=== PATIENT | female | born 1995 | race Caucasian/White ===

== ENCOUNTER → 2020-07-11 15:13 | Outpatient (BNVA) | payer OTHER, SELFPAY | PROVIDERS: Family Provider Family Medicine; Visit Provider Nurse Practitioner Women's Health | DX: N92.6 Irregular menstruation, unspecified (principal); R68.82 Decreased libido | CPT/HCPCS: 83001; 84146; 84443; 84450; 85025 ==

== ENCOUNTER → 2020-08-28 08:15 | Outpatient (BNVA) | payer OTHER, SELFPAY | PROVIDERS: Family Provider Family Medicine; Visit Provider Obstetrics & Gynecology | DX: Z32.01 Encounter for pregnancy test, result positive (principal) | CPT/HCPCS: 81025 ==

== ENCOUNTER 2021-04-25 23:07 | Inpatient (IN) | payer OTHER, SELFPAY ==
[2021-04-25 22:47] VITALS: BP 122/78; PULSE 86
[2021-04-25 22:48] VITALS: TEMP 36.3
[2021-04-25 23:08] VITALS: TEMP 36.3
[2021-04-25 23:10] VITALS: BMI 30.9
[2021-04-25 23:24] VITALS: RESP 15
[2021-04-25] MEDS: dextrose 5%-lactated ringers 1,000 ML 125 ML IV (23:24)
[2021-04-25] MEDS: fentaNYL 50 mcg/mL INJ 2mL IVP (23:24)
[2021-04-25 23:49] VITALS: BP 124/85; PULSE 70
[2021-04-26] VITALS (61 sets, daily range): BP systolic 80–144; BP diastolic 51–84; PULSE 56–210; RESP 17; TEMP 36.3–36.8; O2SAT 92–99
[2021-04-26 00:04] LABS: Basophils % 0.2 %; Eosinophils # 0.1 10^3/uL (0.0-0.8); Eosinophils % 0.3 %; Hematocrit 39.3 % (37.0-47.0); Hemoglobin 13.3 g/dL (11.5-15.3); Lymphocytes # 2.1 10^3/uL (0.8-4.8); Lymphocytes % 13.5 %; Mean Corpuscular HGB Conc 33.8 g/dL (30.0-36.0); Mean Corpuscular Hemoglobin 30.2 pg (28.0-34.0); Mean Corpuscular Volume 89.1 fl (81-99); Mean Platelet Volume 10.8 fL (7.4-10.4); Monocytes # 1.6 10^3/uL (0.2-0.9); Monocytes % 10.1 %; Neutrophils # 11.97 10^3/uL (1.8-7.7); Neutrophils % 75.3 %; Nucleated Red Blood Cells % 0 %; Platelet Count 192 10^3/cmm (130-400); Red Blood Count 4.41 10^6/uL (4.1-5.3); Red Cell Distribution Width 13.7 % (12.1-15.1); White Blood Count 15.9 10^3/uL (4.0-10.0)
[2021-04-26] MEDS: lactated ringers 1,000 ML 999 ML IV (00:30)
--- NOTE | 2021-04-26 01:38 | P.ANESASSM_ITS ---
Pre-Anesthetic Assessment Pre-Anesthetic Assessment: Height/Weight: Height 1.57 m Weight 76.657 kg Temp Pulse Resp BP 97.3 F L 62 15 130/80 04/26/21 01:35 04/26/21 00:09 04/25/21 23:24 04/26/21 00:09 Preop Diagnosis: labor pains Proposed Procedure: epidural Familial anesthetic complications: none Social: Social History: No alcohol and No tobacco Exam: Pre-Anes Outpt Exam: alert, oriented x 3, clear to auscultation bilaterally and regular rate & rhythm Airway: Submandibular: WNL Cervical ROM: WNL MP: 2 Dentition: Full Pulmonary: Pulmonary: None reported CV/HEM: CV/HEM: None reported : : None reported Hepatic: Hepatic: None reported GI: GI: GERD Metabolic: Metabolic: None reported Musc/skel: Musc/skel: None reported Neuropsych: Neuropsych: None reported Anesthetic Plan: ASA status: 2 Anesthesia: Regional (specify below) Risk of > 500 ml blood loss (7ml/kg in children): No Meds/Allergies Current Medications: Current Medications Generic Name Dose Route Start Last Admin Trade Name Freq PRN Reason Stop Dose Admin Fentanyl 25 - 100 mcg 04/25/21 23:08 04/25/21 23:24 Fentanyl 50 Mcg/ Ml Inj 2ml IVP 25 mcg Q1H PRN Administration SEVERE PAIN Dextrose/Lactated Ringer's 1,000 mls @ 125 m ls/hr 04/25/21 23:08 04/25/21 23:24 Dextrose 5%-Lact ated Ringers IV 125 mls/hr .Q8H PRN Administration labor Lactated Ringer's 1,000 mls @ 999 m ls/hr 04/25/21 23:09 04/26/21 00:30 Lactated Ringers IV 999 mls/hr .Q1H1M PRN Administration See label comment s PFSH Anesthesia PFSH: Medical History (Updated 07/11/20 @ 15:35 by Susannah Chery APN, TRINA) No pertinent past medical history neghx: htn,dm,thyroid,dvt/pe Surgical History (Updated 07/11/20 @ 15:32 by Susannah Chery APN, TRINA) Hx of wisdom tooth extraction (~2015) Family History Grandfather Stroke Maternal Denies family history of Colon cancer Ovarian cancer Diabetes Heart disease Hypercholesteremia Breast cancer Bleeding disorder Hypertension Uterine cancer Social History Additional social history: - Tobacco use: Never Alcohol use: Socially/occasionally Drug use: Never Female Reproductive History: : 1 Data Anesthesia CBC & Chem 7: 04/25/21 23:05 Other Labs: Laboratory Results - last 48 hr 04/25/21 23:05 WBC 15.9 H RBC 4.41 Hgb 13.3 Hct 39.3 MCV 89.1 MCH 30.2 MCHC 33.8 RDW 13.7 Plt Count 192 MPV 10.8 H Neut % (Auto) 75.3 Lymph % (Auto) 13.5 [place] % (Auto) 10.1 Eos % (Auto) 0.3 Baso % (Auto) 0.2 Neut # (Auto) 11.97 H Lymph # (Auto) 2.1 [place] # (Auto) 1.6 H Eos # (Auto) 0.1 Baso # (Auto) 0.0 Nucleated RBC % (auto) 0 Nucleated RBCs # 0.0 Cardiac Studies: No Data to Display
--- NOTE | 2021-04-26 02:06 | ANES.PROC ---
Anesthesia Procedures Procedure/Date: 04/26/21 epidural Procedure Narrative: epidural complete, bolus given, epidural pump initiated with CASH MANAGEMENT ASSOCIATE education given, vitals taken during procedure using OBIX system and satisfactory throughout, patient admits to decrease pain, report of procedure to OB RN Epidural: Time Out Performed: Yes Consents Signed: Procedure Consent Consent: requested by attending/covering physician, from patient, risks and benefits reviewed and patient agrees to proceed Lumbar Level: L3-L4 Epidural position: sitting Epidural procedure: sterile prep of area, 1% lidocaine to numb the area (3 mL), 18 g needle, negative for paresthesia passed, neg for paresthesia, test dose given, 1.5% xylocaine 1:200k epi (5 mL), 0.2% Ropivacaine bolus ml (5 mL), placed PCEA, no systemic response, sterile dressing applied, L.U.D. no apparent complications and 0.2% Ropiavacaine @ mls/hr (13 mL/hr)
[2021-04-26] MEDS: ondansetron 2 mg/ML SDV 2 mL 4 MG IVP (04:09)
--- NOTE | 2021-04-26 04:39 | PM.OPHPUD ---
Labor & Delivery H&P Update Date of Procedure: April 26, 2021 Date H&P Performed: 04/25/21 H&P update information: I have reviewed H&P completed within last 30 days, I have examined patient prior to procedure and Changes to prior documentation as noted here (Patient was 6 cm dilated on admission and is in active labor.) Admission Diagnosis: Preop diagnosis: labor pains Primary indication for procedure: Term in spontaneous labor. Planned procedure: Plan spontaneous vaginal delivery. Epidural anesthesia.
[2021-04-26] MEDS: oxytocin 30 UNIT/500 ML BAG 600 UNIT IV (06:23)
--- NOTE | 2021-04-26 06:53 | PM.DELIVERY ---
Delivery Note: Date of delivery: April 26, 2021 This 25-year-old 1 now para 1 female with an EDC of 04/27/2021 began morelia the day prior to delivery. She was seen in the office and found to be about 4 cm dilated but decided she wanted to go home and come back when they got stronger. She arrived to [facility] labor and delivery late in the evening and was approximately 6 cm dilated and morelia every 2 to 3 minutes. She did receive epidural anesthesia and slowly dilated to complete cervical dilatation. The was low-lying the entire time. After dilatation to complete cervical dilatation she pushed for about 40 minutes and delivered by spontaneous vaginal livery a healthy, viable male infant at 06 14. Upon delivery of the head the mouth and nose were suctioned and then the entire baby was delivered without problems. After delivery, the was suctioned again and then laid on mother's abdomen. After approximately 1 minute, the umbilical cord was clamped and then cut by the infant's father. The was a little junky and required suctioning of approximately 14 mL of clear fluid. There was no nuchal cord and the cord had 3 blood vessels. There was a second-degree episiotomy with no extension. Layered surgical closure was accomplished with Vicryl suture. Epidural anesthesia was used for this. After suturing, the vaginal vault was explored and swept of blood clots. There were no complications. At present time mother and are doing well. Estimated blood loss approximately 252 mL. Pre-Delivery Course: This patient was followed by this physician throughout her entire . Maternal blood type was A+ with antibody screen negative. Hepatitis B, hepatitis C, RPR and HIV were negative. Rubella was immune and group B strep was negative. Covid is pending as was tested yesterday. She has spontaneous onset of labor at home yesterday at 39 weeks and 5 days gestation. Delivery: Spontaneous vaginal delivery. Post-Delivery Status: Patient is doing well and will be followed for routine care. A&P Assessment and plan (1) Normal spontaneous vaginal delivery: Patient did well with labor and delivery process. There were no complications. We will plan routine care and probable discharge tomorrow. Status: Acute Coding Level of Care Code Acute Community Program Assistant for [employer] Workman Diagnoses Normal spontaneous vaginal delivery O80
[2021-04-26] MEDS: prenatal vitamin Capsule 1 CAP PO (09:13)
[2021-04-26] MEDS: docusate sodium 100 mg Capsule PO ×2 (09:13→18:25)
[2021-04-26] MEDS: benzocaine-menthol 78 gm Canister 1 SPRAY TOPICAL (09:14)
[2021-04-26] MEDS: lanolin oint 7 gm 1 APPLIC TOPICAL (09:14)
[2021-04-26] MEDS: ibuprofen 800 mg tablet PO ×3 (09:14→20:30)
--- NOTE | 2021-04-26 11:16 | PC.NURSE ---
Pt up to bathroom without difficulty. Void 400mL. Educated on shasha care, suture care. Shasha care performed by pt, pad/underwear changed, gown changed. Bed linens changed and mattress pad placed. Pt ambulated back to bed. Snack, juice and ice water given. Discussed proud parent pack, I &O sheet, and how to order meals with cafeteria.
--- NOTE | 2021-04-26 11:29 | ANE.PACU2 ---
Inpatient post-anesthesia follow up: Airway intact: Yes Vital signs: Temperature 98.0 F Pulse Rate 71 Respiratory Rate 17 Blood Pressure 109/52 Pulse Oximetry 98 Oxygen Delivery Me thod Room Air Oxygen Flow Rate Fraction of Inspir ed Oxygen Hydration adequate: Yes Nausea and vomiting: No Pain level: 1 Mental status: Baseline
[2021-04-26] MEDS: HYDROcodone-acetaminophen 5-325 mg Tablet PO (16:42)
[2021-04-26 19:12] LABS: Hematocrit 35.8 % (37.0-47.0); Hemoglobin 11.6 g/dL (11.5-15.3); Mean Corpuscular HGB Conc 32.4 g/dL (30.0-36.0); Mean Corpuscular Hemoglobin 30.6 pg (28.0-34.0); Mean Corpuscular Volume 94.5 fl (81-99); Mean Platelet Volume 10.8 fL (7.4-10.4); Platelet Count 177 10^3/cmm (130-400); Red Blood Count 3.79 10^6/uL (4.1-5.3); White Blood Count 20.4 10^3/uL (4.0-10.0)
[2021-04-27] VITALS (9 sets, daily range): BP systolic 105–146; BP diastolic 59–82; PULSE 80–114; RESP 17–18; TEMP 35.8–36.1
--- NOTE | 2021-04-27 09:12 | P.DS_ITS ---
Discharge Providers CUSTOMER EXPERIENCE ASSOCIATE Date of Admission: 04/25/21 23:07 Date of Discharge: 04/27/21 Attending Provider at Admission: Real Blanco MD Attending Provider at Discharge: Real Blanco MD Primary Care Provider: Real Blanco MD Diagnoses at Discharge Discharge Diagnosis (1) Normal spontaneous vaginal delivery: Status: Acute Reason for Visit Reason for Visit: Contractions Hospital Course Hospital Course Patient delivered by normal vaginal delivery early yesterday morning after onset of labor at home. She has done well since delivery with just mild lochia and no significant clots or cramping. is breast-feeding well and the patient has no concerns at this time. Information Peripartum Data: Infant Delivery Method: Vaginal Physical Exam Const: COMMON NORMALS: no acute distress, average body habitus, healthy appearing and well nourished HENMT: COMMON NORMALS: moist oral mucous membranes Resp: COMMON NORMALS: normal respiratory effort, No retractions, No use of accessory muscles and clear to auscultation bilaterally AUSCULTATION: clear to auscultation bilaterally Cardio: COMMON NORMALS: regular rate and regular rhythm RATE: regular rate RHYTHM: regular rhythm GI: COMMON NORMALS: Normal to inspection, nondistended, normoactive bowel sounds present and Soft to palpation (Fundus is firm and well below the umbilicus.) PALPATION: Yes Soft to palpation (Fundus is firm and well below the umbilicus.) Extremity: COMMON NORMALS: normal to inspection, full ROM, no calf tenderness and no pedal edema Neuro: COMMON NORMALS: moves all extremities, no focal motor deficits and no sensory deficits noted Psych: COMMON NORMALS: mental status grossly normal and cooperative Skin: COMMON NORMALS: no rashes or lesions noted GENERAL SKIN EXAM: no rashes or lesions noted Urinary Catheter Management^: Phillips: Cath Placed During This Visit: yes Reason for Continuing Indwelling Catheter: Other Urinary Catheter Date of Insertion: 04/26/21 Urinary Catheter Time of Insertion: 02:50 Discharge Data Data Completed and Pending: Labs from last 24 hours 04/26/21 18:30 WBC 20.4 H RBC 3.79 L Hgb 11.6 Hct 35.8 L MCV 94.5 D MCH 30.6 MCHC 32.4 RDW 14.0 Plt Count 177 MPV 10.8 H Vitals: Last Vital Signs Temp 97.0 F L 04/27/21 04:09 Pulse 80 04/27/21 04:10 Resp 17 04/26/21 11:13 BP 115/59 04/27/21 04:10 Pulse Ox 98 04/26/21 02:32 Discharge Plan Discharge Patient Disposition: Home Condition: Stable Prescriptions: New -U 106.5-1 mg Capsule 1 cap PO DAILY Qty: 90 RF: 1 docusate sodium 100 mg Capsule 100 mg PO BID Qty: 60 RF: 2 ibuprofen 800 mg Tablet 800 mg PO TID Qty: 90 RF: 1 Continued melatonin 3 mg capsule 3 mg PO DAILY RF: 0 Discontinued flibanserin 100 mg tablet 100 mg PO .hs PRN (Reason: low libido) Qty: 15 RF: 0 Referrals: Real Blanco MD [Primary Care Provider] - 6 Weeks Discharge Diet: Usual diet Discharge Activity: Resume usual activity Patient Instructions: Opioid Safety Discharge Attestations CUSTOMER EXPERIENCE ASSOCIATE Time Spent in Discharge Care*: less than 30 min Specific Discharge Activities: Specific discharge activities: educating patient, documenting/other paperwork and evaluating patient/reviewing data Coding Level of Care Code Acute Roofing Plant Supervisor for Chg Fwd Diagnoses Normal spontaneous vaginal delivery O80
[2021-04-27] MEDS: prenatal vitamin Capsule 1 CAP PO (10:43)
[2021-04-27] MEDS: HYDROcodone-acetaminophen 5-325 mg Tablet PO ×2 (10:43→14:34)
[2021-04-27] MEDS: ibuprofen 800 mg tablet PO ×2 (10:43→14:33)
[2021-04-27] MEDS: docusate sodium 100 mg Capsule PO ×2 (10:43→14:34)
[2021-04-27] MEDS: lanolin oint 7 gm 1 APPLIC TOPICAL (14:33)
== END 2021-04-27 15:00 | disposition home or self-care (01) | DRG 807 ==
LOC: OPOB 23:10 → OBGYN 23:10
PROVIDERS: Admitting Provider Family Medicine; PCP Family Medicine; Visit Provider Family Medicine
DX: O70.1 Second degree perineal laceration during delivery (principal); Z37.0 Single live birth; Z3A.39 39 weeks gestation of pregnancy
CPT/HCPCS: 36415; 51702; 59025; 59409; 85025; 85027; 96374; 96375; 99211; J2405; J2795; J3010

== ENCOUNTER 2021-05-27 10:50 | Outpatient (CLI) | payer OTHER, SELFPAY ==
--- NOTE | 2021-05-27 12:17 | PC.NURSE ---
consult This mom called requesting a consult. She is not directly her baby. She pumps and feeds with a bottle. Her concern is nipple pain with pumping and low milk supply. She does feed supplemental formula. Currently she pumps about 6 or 7 times per day for 30 min. she has tried different flange sizes but no relief of pain. She returns about 0.5 to 3 oz. each time total from both breasts. She also has an area of her left breast that is not draining well. Her baby is currently finishing a course of treatment for thrush but still has it. Her breasts are average size with average to small nipples and areolas. They appear full but not engorged, the left nipple is pink/sore or tender. She reports the right to be painful with pumping but it is normal color. Discussed pumping frequency. Encouraged her to increase the frequency to 10 or even 12 times per day for 15 to 20 min on each breast for about a week and see if she can increase the volume. Also noted the marcela from her pump on the left areola is off center. Discussed how this can be causing significant pain. Reviewed pumping suction and not using too much, using the let down phase of her pump more than once if necessary Showed her how to hand express also. Discussed using warm moist heat to massage the breast prior to pumping. Discussed and gave resource information for Hands on Pumping technique as well. Discussed massaging the hard area of her breast before and during pumping to help that area drain better. She has been treated with antibiotics recently for a mastitis. Discussed cleaning all her pump and bottle supplies including pacifiers and toys. She is planning to contact Dr. Blanco for baby's thrush. She may need treatment herself as well due to the color of her nipples and possible some of the nipple pain could be yeast infection. Dr Blanco notifiied of the above consult.
[2021-05-27 12:39] VITALS: PULSE 80; RESP 16; TEMP 36.9
== END 2021-05-27 11:40 | disposition home or self-care (01) ==
LOC: OPOB 11:51
PROVIDERS: PCP Family Medicine; Visit Provider Family Medicine
DX: Z39.1 Encounter for care and examination of lactating mother (principal)
CPT/HCPCS: 98960

== ENCOUNTER 2022-04-04 12:04 | Outpatient (CLI) | payer OTHER, SELFPAY ==
[2022-04-04] VITALS (7 sets, daily range): BP systolic 94–118; BP diastolic 59–67; PULSE 72–88; RESP 17; TEMP 36.6; BMI 27.8
[2022-04-04] MEDS: ondansetron 2 mg/ML SDV 2 mL 4 MG IVP (12:54)
[2022-04-04] MEDS: lactated ringers 1,000 ML 999 ML IV (12:54)
== END 2022-04-04 12:48 | disposition home or self-care (01) ==
LOC: OPOB 12:04 → OBGYN 12:05
PROVIDERS: PCP Family Medicine; Visit Provider Family Medicine
DX: O21.9 Vomiting of pregnancy, unspecified (principal); Z3A.00 Weeks of gestation of pregnancy not specified
CPT/HCPCS: J2405

== ENCOUNTER 2022-07-16 19:11 | Outpatient (CLI) | payer OTHER, SELFPAY ==
[2022-07-16 19:15] VITALS: RESP 16; BMI 33.0
[2022-07-16 19:20] VITALS: BP 129/78; PULSE 82
[2022-07-16 19:24] VITALS: TEMP 36.1
[2022-07-16 19:41] VITALS: BP 117/69; PULSE 75
[2022-07-16 20:08] VITALS: BP 117/69; PULSE 75; RESP 16; TEMP 36.1
[2022-07-16 20:52] LABS: Nitrazine Paper, PH Negative
== END 2022-07-16 20:03 | disposition home or self-care (01) ==
LOC: OPOB 19:12 → OBGYN 19:12
PROVIDERS: PCP Family Medicine; Visit Provider Family Medicine
DX: O26.899 Other specified pregnancy related conditions, unspecified trimester (principal); Z3A.00 Weeks of gestation of pregnancy not specified; N89.8 Other specified noninflammatory disorders of vagina
CPT/HCPCS: 59025; 83986; 99211

== ENCOUNTER 2022-07-26 04:50 | Inpatient (IN) | payer OTHER, SELFPAY ==
[2022-07-26] VITALS (56 sets, daily range): BP systolic 90–143; BP diastolic 49–88; PULSE 55–129; RESP 15–16; TEMP 36.1–36.9; O2SAT 98–99
[2022-07-26] MEDS: lactated ringers 1,000 ML 999 ML IV ×2 (04:31→05:30)
[2022-07-26 04:43] LABS: Basophils % 0.1 %; Eosinophils # 0.1 10^3/uL (0.0-0.8); Eosinophils % 0.4 %; Hematocrit 37.2 % (37.0-47.0); Hemoglobin 12.1 g/dL (11.5-15.3); Lymphocytes # 2.1 10^3/uL (0.8-4.8); Lymphocytes % 15.6 %; Mean Corpuscular HGB Conc 32.5 g/dL (30.0-36.0); Mean Corpuscular Hemoglobin 27.8 pg (28.0-34.0); Mean Corpuscular Volume 85.5 fl (81-99); Mean Platelet Volume 10.6 fL (7.4-10.4); Monocytes # 0.9 10^3/uL (0.2-0.9); Monocytes % 6.5 %; Neutrophils # 10.51 10^3/uL (1.8-7.7); Neutrophils % 76.9 %; Nucleated Red Blood Cells % 0 %; Platelet Count 230 10^3/cmm (130-400); Red Blood Count 4.35 10^6/uL (4.1-5.3); Red Cell Distribution Width 16.1 % (12.1-15.1); White Blood Count 13.7 10^3/uL (4.0-10.0)
[2022-07-26] MEDS: vancomycin 1,500 MG/300 ML PIGGYBACK 200 MG IV (04:59)
--- NOTE | 2022-07-26 05:28 | ANES.PREANE2 ---
Pre-Anesthetic Assessment Height/Weight: Height 1.57 m Weight 82.1 kg Temp Pulse Resp BP O2 Del Method 97.0 F L 94 15 128/85 07/26/22 03:54 07/26/22 03:54 07/26/22 04:16 07/26/22 03:54 07/26/22 05:05 Preop Diagnosis: labor pains Was Beta Ilia taken within 24 hours: N/A Was Clonidine taken within 24 hours: N/A Social No alcohol and No tobacco Exam alert, oriented x 3, clear to auscultation bilaterally and regular rate & rhythm Airway Submandibular: within normal limits Cervical ROM: within normal limits Mallampati: Class III Dentition: full History/ROS No significant history except as noted and No significant complaints Pulmonary None reported CV/HEM None reported None reported Hepatic None reported GI Gastroesophageal Reflux Disease Metabolic None reported Musc/skel None reported Neuropsych None reported Anesthetic Plan ASA status: 2 Anesthesia: Anesthesia Evaluation and Eval. for regional block Risk of > 500 ml blood loss (7ml/kg in children): No Medications/Allergies Home Medications Medication Instructions Recorded Confirmed Last Taken Type vitamin with calcium 1 tab PO DAILY 07/16/22 07/26/22 07/25/22 History no.72-iron 27 mg-folic acid 1 mg tablet (M- Plus) Allergies Allergy/AdvReac Type Severity Reaction Status Date / Time Penicillins Allergy Unknown unknown-- Verified 07/26/22 04:57 mom told her not to take Current Medications Generic Name Dose Route Start Last Admin Trade Name Freq PRN Reason Stop Dose Admin Lactated Ringer's 1,000 mls @ 999 mls/hr 07/26/22 04:14 07/26/22 04:31 Lactated Ringers IV 999 mls/hr .Q1H1M PRN Administration See label comments Vancomycin/PEG/[place]/Lysine/Water 1,500 mg in 300 mls @ 200 mls/hr 07/26/22 04:45 07/26/22 04:59 Vancocin IV 200 mls/hr Q8H CHAO Administration PFSH Anesthesia Medical History (Updated 04/28/21 @ 00:01 by ) No pertinent past medical history neghx: htn,dm,thyroid,dvt/pe Surgical History (Updated 07/11/20 @ 15:32 by Susannah Chery APN, TRINA) Hx of wisdom tooth extraction (~2016) Family History Grandfather Stroke Maternal Denies family history of Colon cancer Ovarian cancer Diabetes Heart disease Hypercholesteremia Breast cancer Bleeding disorder Hypertension Uterine cancer Social History Additional social history: - Tobacco use: Never Alcohol use: Socially/occasionally Drug use: Never Female Reproductive History : 2 Data Anesthesia 07/26/22 04:25 Short CBC 07/26/22 Range/Units 04:25 WBC 13.7 H (4.0-10.0) 10^3/uL Hgb 12.1 (11.5-15.3) g/dL Hct 37.2 (37.0-47.0) % MCV 85.5 (81-99) fl Plt Count 230 (130-400) 10^3/cmm Neut % (Auto) 76.9 % Neut # (Auto) 10.51 H (1.8-7.7) 10^3/uL Cardiac Studies: No Data to Display
--- NOTE | 2022-07-26 06:01 | ANES.PROC ---
Anesthesia Procedures Procedure/Date: 07/26/22 Epidural: Time Out Performed: Yes Consents Signed: Procedure Consent and NPO Consent Consent: requested by attending/covering physician, from patient, risks and benefits reviewed and patient agrees to proceed Lumbar Level: L3-L4 Epidural position: sitting Epidural procedure: sterile prep of area, 1% lidocaine to numb the area, neg for paresthesia, test dose given, 1.5% xylocaine 1:200k epi (3 mL/ 2 mL), 0.2% Ropivacaine bolus ml (5 mL), placed PCEA, no systemic response, sterile dressing applied and 0.2% Ropiavacaine @ mls/hr (11 ) Additional Comments: PATRICK 6 cm, placed catheter at 11 cm
[2022-07-26] MEDS: dextrose 5%-lactated ringers 1,000 ML 125 ML IV (08:27)
[2022-07-26] MEDS: oxytocin 30 UNIT/500 ML BAG IV (10:30)
[2022-07-26] MEDS: ondansetron 2 mg/ML SDV 2 mL 4 MG IVP (13:11)
--- NOTE | 2022-07-26 13:54 | P.HP_ITS ---
Providers/Chief Complaint Admitting Physician: Irving Lam MD Primary Care Provider: Real Blanco MD Chief Complaint: Contractions HPI PLANT ATTENDANT History of Present Illness Lizzy Roberts is a 27 year old female that presents at 40 weeks and 3 days due to her contractions. Initial presentation she was 5 cm dilated and 85% effaced. Patient had started having contractions early in the morning and they became more painful and more frequent therefore she presented for evaluation. Her was uncomplicated. labs were unremarkable except for GBS which was positive. Sensitivities was performed and vancomycin was antibiotic of choice. Present Details : 2 Para: 1 Labs Rubella: Immune RPR: Negative GBS: Positive Review of Systems General: Reports: 10 or more systems reviewed and unremarkable except in HPI and below Medications/Allergies Home Medications Medication Instructions Recorded Confirmed Last Taken Type vitamin with calcium 1 tab PO DAILY 07/16/22 07/26/22 07/25/22 History no.72-iron 27 mg-folic acid 1 mg tablet (M- Plus) Allergies Allergy/AdvReac Type Severity Reaction Status Date / Time Penicillins Allergy Unknown unknown-- Verified 07/26/22 04:57 mom told her not to take PFSH PLANT ATTENDANT PFSH: Medical History (Updated 07/26/22 @ 13:58 by Irving Lam MD) No pertinent past medical history neghx: htn,dm,thyroid,dvt/pe Surgical History (Updated 07/11/20 @ 15:32 by Susannah Chery APN, TRINA) Hx of wisdom tooth extraction (~2015) Family History Grandfather Stroke Maternal Denies family history of Colon cancer Ovarian cancer Diabetes Heart disease Hypercholesteremia Breast cancer Bleeding disorder Hypertension Uterine cancer Social History Additional social history: - Tobacco use: Never Alcohol use: Socially/occasionally Drug use: Never Other Female Reproductive History: Date of Last Menstrual Period: 06/21/20 History History History 0 Term Miscarriages/Ectopic Living Children Vitals/I&O/Wt Last Vital Signs Temp 98.4 F 07/26/22 10:11 Pulse 86 07/26/22 13:43 Resp 15 07/26/22 04:16 BP 115/78 07/26/22 13:43 Pulse Ox 98 07/26/22 05:49 O2 Del Method 07/26/22 05:05 07/25/22 07/26/22 07/26/22 22:59 06:59 14:59 Intake Total 2182.450 / 2182.450 3.00 / 3.00 Balance 2182.450 / 2182.450 3.00 / 3.00 Weight last 48 hrs Weight 82.1 kg Weight 181 g Physical Exam Const: COMMON NORMALS: no acute distress HENMT: COMMON NORMALS: normocephalic Chest: COMMONS NORMALS: normal inspection of the chest Resp: COMMON NORMALS: normal respiratory effort Cardio: COMMON NORMALS: no JVD, regular rate and regular rhythm Extremity: GENERAL: No edema Neuro: COMMON NORMALS: patient oriented x3 and moves all extremities Psych: COMMON NORMALS: mental status grossly normal and normal affect Skin: GENERAL SKIN EXAM: no rashes or lesions noted Urinary Catheter Management: Phillips Latex: Cath Placed During This Visit: yes Reason for Continuing Indwelling Catheter: Other Urinary Catheter Date of Insertion: 07/26/22 Urinary Catheter Time of Insertion: 04:05 Data 07/26/22 04:25 A&P Assessment and plan (1) Term : Proceed with normal labor management. (2) GBS (group B Streptococcus carrier), +RV culture, currently : Patient is penicillin allergic and vancomycin recommended per cultures. Attestations Medical Necessity Statement*: Anticipate greater than 2 midnight stay due to GBS status. Coding Level of Care Code Acute Hydrostatic Tubing Tester for Chg Fwd Diagnoses Term Z34.90 GBS (group B Streptococcus carrier), +RV culture, currently O99.820
--- NOTE | 2022-07-26 14:01 | PM.DELIVERY ---
Delivery Note: Date of delivery: July 26, 2022 Pre-delivery diagnoses: Term intrauterine Post-delivery diagnoses: Same, viable infant male Procedure: Spontaneous vaginal delivery Delivering Physician: Dr. Kong Lam Estimated blood loss (mL): 300 Pre-Delivery Course: Patient presented in active labor\ and progressed to 8 cm. The patient did not progress for several hours so augmentation was started with Pitocin. Patient then progressed to complete. She received 1 dose of vancomycin prior to rupture during the last check. Delivery: Patient was placed in normal lithotomy position and started to push with contractions. Patient delivered a viable infant male after 4 contractions. After delivery, the placenta delivered without difficulty. Evaluation of the perineum showed a small second-degree perineal laceration and a first-degree left labial laceration. Perineal laceration was repaired with 2-0 Vicryl. The labial laceration was pillow repaired with 2-0 chromic. At the end of the procedure the laceration showed no further complications and mom was stable. Post-Delivery Status: Stable History History History 0 Term Miscarriages/Ectopic Living Children A&P Assessment and plan (1) Term delivered: Routine care Coding Level of Care Code Acute Pc Network Technician for Chg Fwd Diagnoses Term delivered O80
[2022-07-26] MEDS: benzocaine-menthol 78 gm Canister 1 SPRAY TOPICAL (15:47)
[2022-07-26] MEDS: ibuprofen 800 mg tablet PO ×2 (15:48→20:53)
[2022-07-26] MEDS: docusate sodium 100 mg Capsule PO (17:37)
[2022-07-27 01:53] VITALS: BP 116/70; PULSE 68; RESP 15; O2SAT 98
[2022-07-27 03:18] LABS: Hematocrit 32.7 % (37.0-47.0); Hemoglobin 10.6 g/dL (11.5-15.3); Mean Corpuscular HGB Conc 32.4 g/dL (30.0-36.0); Mean Corpuscular Hemoglobin 28.1 pg (28.0-34.0); Mean Corpuscular Volume 86.7 fl (81-99); Mean Platelet Volume 11.1 fL (7.4-10.4); Platelet Count 181 10^3/cmm (130-400); Red Blood Count 3.77 10^6/uL (4.1-5.3); Red Cell Distribution Width 16.3 % (12.1-15.1); White Blood Count 13.5 10^3/uL (4.0-10.0)
[2022-07-27 04:31] VITALS: BP 122/81; PULSE 67; RESP 16
[2022-07-27] MEDS: docusate sodium 100 mg Capsule PO ×2 (07:33→17:24)
[2022-07-27] MEDS: ibuprofen 800 mg tablet PO ×3 (07:33→21:26)
[2022-07-27] MEDS: prenatal vitamin Capsule 1 CAP PO (07:33)
[2022-07-27 10:00] VITALS: BP 118/77; PULSE 67; RESP 18; TEMP 36.6; O2SAT 98
--- NOTE | 2022-07-27 10:48 | P.PN_ITS ---
HOME DEMONSTRATION AGENT Subjective Subjective: Interval history: The patient had no acute events overnight. No new concerns this morning. She has ambulated and voided since delivery. Patient reports bleeding has been appropriate. Labor: Station: +1 Amniotic Membrane Status: Ruptured Monitor Mode: External Contraction Pattern: Regular Status: Category I Vitals/I&O/Wt Last Vital Signs Temp 97.9 F 07/27/22 10:00 Pulse 67 07/27/22 10:00 Resp 18 07/27/22 10:00 BP 118/77 07/27/22 10:00 Pulse Ox 98 07/27/22 10:00 O2 Del Method 07/27/22 10:00 07/26/22 07/27/22 07/27/22 22:59 06:59 14:59 Output Total 750 / 750 Balance -750 / -150.00 Weight last 48 hrs Weight 82.1 kg Weight 181 g Physical Exam Const: COMMON NORMALS: no acute distress Neck/C-Spine: COMMON NORMALS: no JVD Chest: COMMONS NORMALS: normal inspection of the chest Resp: COMMON NORMALS: normal respiratory effort and No retractions Cardio: COMMON NORMALS: no JVD, regular rate and regular rhythm RATE: regular rate RHYTHM: regular rhythm GI: COMMON NORMALS: Soft to palpation PALPATION: Yes Soft to palpation Extremity: COMMON NORMALS: normal to inspection and no pedal edema Neuro: COMMON NORMALS: moves all extremities, no focal motor deficits and no sensory deficits noted Psych: COMMON NORMALS: mental status grossly normal and normal affect Urinary Catheter Management: Phillips Latex: Cath Placed During This Visit: yes, but has since been removed by the nurse Reason for Continuing Indwelling Catheter: Other Urinary Catheter Date of Insertion: 07/26/22 Urinary Catheter Time of Insertion: 04:05 Date Urinary Catheter Removed: 07/26/22 Time Urinary Catheter Discontinued: 13:19 Data 07/27/22 01:45 A&P Assessment and plan (1) Term delivered: continue routine care. Attestations Medical Necessity Statement*: anticipate discharge tomorrow. Coding Level of Care Code Acute Rn Compliance for [facility] Fwd Exam Comprehensive Diagnoses Term delivered O80
--- NOTE | 2022-07-27 14:55 | ANE.PACU2 ---
Inpatient post-anesthesia follow up: Airway intact: Yes Vital signs: Temperature 97.9 F Pulse Rate 67 Respiratory Rate 18 Blood Pressure 118/77 Pulse Oximetry 98 Oxygen Delivery Me thod Room Air Oxygen Flow Rate Fraction of Inspir ed Oxygen Hydration adequate: Yes Nausea and vomiting: No Pain level: 2 Mental status: Baseline
[2022-07-27 17:52] VITALS: BP 116/73; PULSE 72; RESP 16; TEMP 36.7
[2022-07-27 19:30] VITALS: BP 128/75; PULSE 73; TEMP 36.8; O2SAT 98
[2022-07-28 03:34] VITALS: BP 121/83; PULSE 80; O2SAT 99
--- NOTE | 2022-07-28 07:27 | PM.OBGYDC ---
Discharge Providers SILK CREPE MACHINE OPERATOR Date of Admission: 07/26/22 04:50 Date of Discharge: 07/28/22 Attending Provider at Admission: Irving Lam MD Attending Provider at Discharge: Irving Lam MD Primary Care Provider: Real Blanco MD Diagnoses at Discharge Discharge Diagnosis (1) Term delivered: Status: Acute Reason for Visit Reason for Visit: Contractions Brief History: This is a 27-year-old that presented at 40 weeks 3 days in active labor. Hospital Course Hospital Course Routine labor management was initiated and the patient progressed to 8 cm dilation. At this point her labor had to be augmented with Pitocin and the patient then progressed to complete. Patient then gave to a viable male via spontaneous vaginal delivery. There are no complications during delivery. The patient had an unremarkable recovery. Pain is well controlled with oral medications. The patient is ambulating and urinating without difficulty. Lochia is appropriate. Information Peripartum Data: Delivery Method: Vaginal Laceration description: Perineal - 2nd Degree (left) Episiotomy description: None complications: none Physical Exam Const: COMMON NORMALS: no acute distress Neck/C-Spine: COMMON NORMALS: no JVD Chest: COMMONS NORMALS: normal inspection of the chest Resp: COMMON NORMALS: normal respiratory effort and No retractions Cardio: COMMON NORMALS: no JVD and regular rate RATE: regular rate GI: COMMON NORMALS: Normal to inspection, nondistended, normoactive bowel sounds present Neuro: COMMON NORMALS: moves all extremities Psych: COMMON NORMALS: mental status grossly normal and normal affect Urinary Catheter Management: Phillips Latex: Cath Placed During This Visit: yes, but has since been removed by the nurse Reason for Continuing Indwelling Catheter: Other Urinary Catheter Date of Insertion: 07/26/22 Urinary Catheter Time of Insertion: 04:05 Date Urinary Catheter Removed: 07/26/22 Time Urinary Catheter Discontinued: 13:19 History History History 0 Term Miscarriages/Ectopic Living Children Discharge Data Studies Completed and Pending Laboratory Results WBC 13.5 10^3/uL (4.0-10.0) H 07/27/22 01:45 RBC 3.77 10^6/uL (4.1-5.3) L 07/27/22 01:45 Hgb 10.6 g/dL (11.5-15.3) L 07/27/22 01:45 Hct 32.7 % (37.0-47.0) L 07/27/22 01:45 MCV 86.7 fl (81-99) 07/27/22 01:45 MCH 28.1 pg (28.0-34.0) 07/27/22 01:45 MCHC 32.4 g/dL (30.0-36.0) 07/27/22 01:45 RDW 16.3 % (12.1-15.1) H 07/27/22 01:45 Plt Count 181 10^3/cmm (130-400) 07/27/22 01:45 MPV 11.1 fL (7.4-10.4) H 07/27/22 01:45 Neut % (Auto) 76.9 % 07/26/22 04:25 Lymph % (Auto) 15.6 % 07/26/22 04:25 Saunders % (Auto) 6.5 % 07/26/22 04:25 Eos % (Auto) 0.4 % 07/26/22 04:25 Baso % (Auto) 0.1 % 07/26/22 04:25 Neut # (Auto) 10.51 10^3/uL (1.8-7.7) H 07/26/22 04:25 Lymph # (Auto) 2.1 10^3/uL (0.8-4.8) 07/26/22 04:25 Saunders # (Auto) 0.9 10^3/uL (0.2-0.9) 07/26/22 04:25 Eos # (Auto) 0.1 10^3/uL (0.0-0.8) 07/26/22 04:25 Baso # (Auto) 0.0 10^3/uL (0.0-0.1) 07/26/22 04:25 Nucleated RBC % (auto) 0 % 07/26/22 04:25 Nucleated RBCs # 0.0 /100WBC 07/26/22 04:25 Vitals Last Vital Signs Temp 98.3 F 07/27/22 19:30 Pulse 80 07/28/22 03:34 Resp 16 07/27/22 17:52 BP 121/83 07/28/22 03:34 Pulse Ox 99 07/28/22 03:34 O2 Del Method 07/28/22 03:34 Discharge Plan Discharge Patient Disposition: Home Condition: Stable Prescriptions: Continued M-Hany Plus 27 mg iron- 1 mg tablet 1 tab PO DAILY Discharge Orders: Discharge Order (Routine); Ordered 07/28/22 Ordered By: Ivring Lam Discharge Diet: Usual diet Discharge Activity: Limit activity as instructed Patient Instructions: Opioid Safety Discharge Attestations SILK CREPE MACHINE OPERATOR Time Spent in Discharge Care*: less than 30 min Coding Level of Care Code Acute Automated Equipment Engineer Technician for Chg Fwd Diagnoses Term delivered O80
[2022-07-28 09:38] VITALS: BP 119/75; PULSE 71; RESP 17; TEMP 37.2; O2SAT 99
[2022-07-28] MEDS: ibuprofen 800 mg tablet PO (09:38)
[2022-07-28] MEDS: docusate sodium 100 mg Capsule PO (09:39)
[2022-07-28] MEDS: prenatal vitamin Capsule 1 CAP PO (09:39)
[2022-07-28 12:15] VITALS: BP 119/75; PULSE 71; RESP 17; TEMP 37.2; O2SAT 99
== END 2022-07-28 12:15 | disposition home or self-care (01) | DRG 807 ==
LOC: OPOB 04:53 → OBGYN 04:53
PROVIDERS: Admitting Provider Family Medicine; PCP Family Medicine; Visit Provider Family Medicine
DX: O48.0 Post-term pregnancy (principal); Z37.0 Single live birth; O99.824 Streptococcus B carrier state complicating childbirth; O70.1 Second degree perineal laceration during delivery; O70.0 First degree perineal laceration during delivery; Z3A.40 40 weeks gestation of pregnancy
CPT/HCPCS: 36415; 51702; 59025; 59409; 85025; 85027; 96374; 98960; 99211; J2405; J2590; J2795; J3370; J7120; J7121

== ENCOUNTER 2023-11-29 00:01 | Emergency (ER) | payer OTHER, SELFPAY ==
[2023-11-29 00:04] VITALS: BP 143/95; PULSE 113; RESP 20; TEMP 36.8; O2SAT 98; BMI 25.9
[2023-11-29 00:16] VITALS: BP 108/65; PULSE 94; RESP 18; O2SAT 96
--- NOTE | 2023-11-29 00:38 | USR_ITS ---
PROCEDURE INFORMATION: Exam: US , Limited Exam date and time: 11/29/2023 1:01 AM Age: 28 years old Clinical indication: Lmp or gestational age (in weeks): 11w3d; Antepartum complications; Bleeding; ; Additional info: 11w , vaginal bleeding LABS AND CLINICAL REPORTS: Gestational age (Established): 11 w 3 d Estimated due date (Established): 06/16/2024 TECHNIQUE: Imaging protocol: Real-time ultrasound of the maternal uterus with image documentation. Exam focused on the clinical indication. COMPARISON: US OB >= 14 weeks fetus [id number] 03/10/2022 10:47 AM FINDINGS: Gestation: Single live intrauterine gestation. heart rate: 174 bpm. Placenta: Subchorionic bleed noted, measuring 3.4 x 3.0 x 1.5 cm. BIOMETRY: Gestational age (AUA): 11 weeks 2 days Estimated due date (AUA): 06/17/2024 [place] length (CRL): 4.54 cm MATERNAL: Cervix: Cervical length measures 3 cm. US/US OB limited [id number] IMPRESSION: 1. Single live intrauterine gestation with estimated age of 11 weeks 2 days. 2. Subchorionic bleed.
--- NOTE | 2023-11-29 00:43 | ED_ITS ---
HPI - Female Genitourinary 2 General: Chief complaint: Urogenital-Female Stated complaint: heavy spotting 11weeks prego Time Seen by Provider: 11/29/23 00:19 History of Present Illness: 28-year-old G3, P2 female who is 11 week s . She had a previous ultrasound showing an IUP. She presents with brisk vaginal bleeding that started prior to arrival. She states her and her did have intercourse this evening. No other injury or insult. No other vaginal discharge. No fever. Some mild cramping. She has not bled with prior pregnancies. Associated symptoms: Deny nausea Review of Systems 2 Const: Denies: fever(s) or body aches GI: Denies: nausea, vomiting or diarrhea : Denies: difficulty voiding Skin/Breast: Denies: rash PFSH ED 2 PFSH: Medical History No pertinent past medical history neghx: htn,dm,thyroid,dvt/pe Surgical History Hx of wisdom tooth extraction (~2015) Family History Grandfather Stroke Maternal Denies family history of Colon cancer Ovarian cancer Diabetes Heart disease Hypercholesteremia Breast cancer Bleeding disorder Hypertension Uterine cancer Social History Additional social history: - Tobacco use: Never Alcohol use: Socially/occasionally Drug use: Never Physical Exam 2 Const: COMMON NORMALS: no acute distress GENERAL APPEARANCE: cooperative; not ill appearing and not frail appearing HENMT: COMMON NORMALS: normocephalic, atraumatic and Normal external nose present HEAD & SCALP: normocephalic and atraumatic FACE & SINUS: normal facial exam and face symmetric NOSE: Normal external nose present Eye: COMMON NORMALS: Equal, round and reactive pupils present and EOMs intact bilaterally PUPIL: Yes Equal, round and reactive pupils present Neck/C-Spine: GENERAL: Yes trachea midline Chest: CHEST: Yes Symmetrical chest wall rise Resp: COMMON NORMALS: normal respiratory effort, No retractions, No use of accessory muscles and clear to auscultation bilaterally AUSCULTATION: clear to auscultation bilaterally Cardio: COMMON NORMALS: regular rate and regular rhythm RATE: regular rate RHYTHM: regular rhythm GI: COMMON NORMALS: Normal to inspection, nondistended, normoactive bowel sounds present and Soft to palpation PALPATION: Yes Soft to palpation O THER: Mild suprapubic tenderness Extremity: COMMON NORMALS: no pedal edema Neuro: GALA COMA SCALE: document GCS findings Gala coma scale eye opening: Spontaneous Gala coma scale verbal response: Orientated [place] coma scale motor response: Obey commands [place] coma scale total score: 15 S ENSORY EXAM: Yes extremities (intact) Psych: COMMON NORMALS: speech normal SPEECH: Yes normal speech Skin: COMMON NORMALS: no rashes or lesions noted GENERAL SKIN EXAM: no rashes or lesions noted Course 2 Vital Signs: Vital signs: Vital Signs Temperature 98.2 F 11/29/23 00:04 Pulse Rate 94 11/29/23 00:16 Respiratory Rate 18 11/29/23 00:16 Blood Pressure 108/65 11/29/23 00:16 Pulse Oximetry 96 11/29/23 00:16 Oxygen Delivery Me thod Room Air 11/29/23 00:16 MDM - Female Medical Decision Making Hemoglobin is 12. White blood cell count 13.2. Laboratory otherwise not remarkable. Ultrasound shows a subchorionic bleed, and a single intrauterine , active, with a heart rate in 170s, at appropriate age of 11 weeks 2 days. Warning signs for return given. Precautions given. They understand. Close outpatient follow-up. Lab Data 11/29/23 00:52 11/29/23 00:52 Radiology Impressions Obstetrics Ultrasound 11/29/23 00:38 IMPRESSION: 1. Single live intrauterine gestation with estimated age of 11 weeks 2 days. 2. Subchorionic bleed. Laboratory Results WBC 13.21 10^3/uL (3.29-11.43) H 11/29/23 00:52 RBC 4.23 10^6/uL (3.85-5.65) 11/29/23 00:52 Hgb 12.40 g/dL (11.27-16.99) 11/29/23 00:52 Hct 38.3 % (36-47) 11/29/23 00:52 MCV 90.5 fl (85-98) 11/29/23 00:52 MCH 29.3 pg (27-33) 11/29/23 00:52 MCHC 32.4 g/dL (30-55) 11/29/23 00:52 RDW 13.0 % (12.1-15.1) 11/29/23 00:52 Plt Count 248 10^3/cmm (157-399) 11/29/23 00:52 MPV 9.8 fL (7.4-10.4) 11/29/23 00:52 Neut % (Auto) 72.1 % 11/29/23 00:52 Lymph % (Auto) 18.6 % 11/29/23 00:52 [place] % (Auto) 7.1 % 11/29/23 00:52 Eos % (Auto) 1.7 % 11/29/23 00:52 Baso % (Auto) 0.2 % 11/29/23 00:52 Neut # (Auto) 9.52 10^3/uL (1.8-7.7) H 11/29/23 00:52 Lymph # (Auto) 2.5 10^3/uL (0.8-4.8) 11/29/23 00:52 [place] # (Auto) 0.9 10^3/uL (0.2-0.9) 11/29/23 00:52 Eos # (Auto) 0.2 10^3/uL (0.0-0.8) 11/29/23 00:52 Baso # (Auto) 0.0 10^3/uL (0.0-0.1) 11/29/23 00:52 Nucleated RBC % (auto) 0 % 11/29/23 00:52 Nucleated RBCs # 0.0 /100WBC 11/29/23 00:52 Sodium 136 mmol/L (136-145) 11/29/23 00:52 Potassium 3.7 mmol/L (3.5-5.1) 11/29/23 00:52 Chloride 106 mmol/L (98-107) 11/29/23 00:52 Carbon Dioxide 21 mmol/L (22-29) L 11/29/23 00:52 Anion Gap 12.7 (5-19) 11/29/23 00:52 BUN 11 mg/dL (6-20) 11/29/23 00:52 Creatinine 0.4 mg/dL (0.5-0.9) L 11/29/23 00:52 GFR Calculation 192.9 mL/min (90-130) H 11/29/23 00:52 Glucose 89 mg/dL (65-115) 11/29/23 00:52 Calculated Osmolality 281 mOsm/kg (285-295) L 11/29/23 00:52 Calcium 9.0 mg/dL (8.5-10.5) 11/29/23 00:52 Total Bilirubin 0.2 mg/dL (0.15-1.2) 11/29/23 00:52 AST 13 U/L (0-32) 11/29/23 00:52 ALT 10 U/L (0-33) 11/29/23 00:52 Alkaline Phosphatase 50 U/L (35-105) 11/29/23 00:52 Total Protein 6.5 g/dL (6.6-8.7) L 11/29/23 00:52 Albumin 3.8 g/dL (3.5-5.2) 11/29/23 00:52 Globulin 2.7 g/dL (1.3-4.6) 11/29/23 00:52 Lipase 23 U/L (13-60) 11/29/23 00:52 Urine Color Yellow (Yellow) 11/29/23 01:18 Urine Appearance Cloudy (CLEAR) A 11/29/23 01:18 Urine pH 7 (5-7) 11/29/23 01:18 Ur Specific [place] 1.015 (1.005-1.030) 11/29/23 01:18 Urine Protein Trace (Negative) 11/29/23 01:18 Urine Glucose (UA) Norm (Normal) 11/29/23 01:18 Urine Ketones Negative (Negative) 11/29/23 01:18 Urine Blood 3+ (Negative) H 11/29/23 01:18 Urine Nitrate Negative (Negative) 11/29/23 01:18 Urine Bilirubin Neg (Negative) 11/29/23 01:18 Urine Urobilinogen Neg mg/dL (Negative) 11/29/23 01:18 Ur Leukocyte Esterase Negative (Negative) 11/29/23 01:18 Urine RBC 25-40 /hpf (0-2) H 11/29/23 01:18 Urine WBC 0-4 /hpf (0-5) H 11/29/23 01:18 Ur Squamous Epith Cells 0-4 /hpf (0-5) H 11/29/23 01:18 Amorphous Sediment Not Reportable 11/29/23 01:18 Urine Bacteria 1+ /hpf (NONE) H 11/29/23 01:18 Urine Mucus 1+ /hpf 11/29/23 01:18 Blood Type A Positive 11/29/23 00:55 Rho(D) Type Rh positive 11/29/23 00:55 All radiology interpretation(s) finalized by discharge Discharge Plan Discharge Patient Disposition: Home Clinical Impression: Subchorionic hematoma, , spontaneous threatened Condition: Stable Prescriptions: No Action M-Hany Plus 27 mg iron- 1 mg tablet 1 tab PO DAILY Discharge Orders: Discharge ED (Routine); Ordered 11/29/23 Ordered By: Aris Pulliam Referrals: Real Blanco MD [Primary Care Provider] - Lars Tenorio MD [Physician] - 1-3 days Patient Instructions: Threatened Miscarriage (ED), Subchorionic Hemorrhage (ED), Opioid Safety, Pain Management Activity Restrictions/Additional Instructions: Return for brisk vaginal bleeding, soaking a pad an hour or more for more than 3 hours. Return for increasing pain, fever greater than 100, vomiting liquids, any other concerning symptoms. You should have your blood count checked in 48 hours if you continue to bleed. Call your doctor later this morning and let them know you were seen here. They will want to follow up with you. Until your follow-up, no lifting greater than 10 pounds, no sexual intercourse, limit stairs and squatting or bending. Coding Level of Care Code ED Plc Technician for Lenin Workman
[2023-11-29 01:02] LABS: Basophils % 0.2 %; Eosinophils # 0.2 10^3/uL (0.0-0.8); Eosinophils % 1.7 %; Hematocrit 38.3 % (36-47); Lymphocytes # 2.5 10^3/uL (0.8-4.8); Lymphocytes % 18.6 %; Mean Corpuscular HGB Conc 32.4 g/dL (30-55); Mean Corpuscular Hemoglobin 29.3 pg (27-33); Mean Corpuscular Volume 90.5 fl (85-98); Mean Platelet Volume 9.8 fL (7.4-10.4); Monocytes # 0.9 10^3/uL (0.2-0.9); Monocytes % 7.1 %; Neutrophils # 9.52 10^3/uL (1.8-7.7); Neutrophils % 72.1 %; Nucleated Red Blood Cells % 0 %; Platelet Count 248 10^3/cmm (157-399); Red Blood Count 4.23 10^6/uL (3.85-5.65); White Blood Count 13.21 10^3/uL (3.29-11.43)
[2023-11-29 01:29] LABS: Alanine Aminotransferase 10 U/L (0-33); Albumin Level 3.8 g/dL (3.5-5.2); Alkaline Phosphatase 50 U/L (35-105); Anion Gap 12.7 (5-19); Aspartate Amino Transferase 13 U/L (0-32); Blood Urea Nitrogen 11 mg/dL (6-20); Carbon Dioxide 21 mmol/L (22-29); Chloride 106 mmol/L (98-107); Creatinine Clr Calc Pharmacy 187.8245; Globulin 2.7 g/dL (1.3-4.6); Glomerular Filtration Rate 192.9 mL/min (90-130); Glucose 89 mg/dL (65-115); Lipase 23 U/L (13-60); Osmolality Calculated 281 mOsm/kg (285-295); Potassium 3.7 mmol/L (3.5-5.1); Sodium 136 mmol/L (136-145); Total Bilirubin 0.2 mg/dL (0.15-1.2); Total Protein 6.5 g/dL (6.6-8.7)
[2023-11-29 02:04] LABS: Add Urine Culture? Yes; Add Urine Microscopic? YES; Bacteria Urine 1+ /hpf; Bilirubin Urine Neg (Negative); Blood Urine 3+ (Negative); Glucose Urine UA Norm (Normal); Ketones Urine Negative (Negative); Leukocyte Esterase Urine Negative (Negative); Mucus Urine 1+ /hpf; Nitrate Urine Negative (Negative); Protein Urine Trace (Negative); RBC Urine 25-40 /hpf (0-2); Specific Gravity, Urine 1.015 (1.005-1.030); Squamous Epithelial Cell Urine 0-4 /hpf (0-5); Urine Appearance Cloudy (CLEAR); Urine Color Yellow (Yellow); Urobilinogen Urine Neg (Negative); WBC Urine 0-4 /hpf (0-5); pH Urine 7 (5-7)
[2023-11-29 02:31] VITALS: BP 114/64; PULSE 78; RESP 18; O2SAT 97
== END 2023-11-29 02:35 | disposition home or self-care (01) ==
PROVIDERS: Emergency Provider Emergency Medicine; PCP Family Medicine
DX: O20.8 Other hemorrhage in early pregnancy (principal); Z3A.11 11 weeks gestation of pregnancy; O20.0 Threatened abortion
CPT/HCPCS: 36415; 76815; 80053; 81001; 83690; 84702; 85025; 86900; 87086; 99284

== ENCOUNTER 2024-06-09 01:45 | Inpatient (IN) | payer OTHER, SELFPAY ==
[2024-06-08 23:45] VITALS: BMI 34.9
[2024-06-08 23:51] VITALS: BP 128/76; PULSE 78
[2024-06-09] VITALS (50 sets, daily range): BP systolic 78–150; BP diastolic 49–84; PULSE 62–184; RESP 15–40; TEMP 35.9–37.2; O2SAT 90–99
[2024-06-09 01:15] LABS: Actim Prom Positive
[2024-06-09 02:45] LABS: Basophils % 0.1 %; Eosinophils # 0.1 10^3/uL (0.0-0.8); Hematocrit 37.8 % (36-47); Lymphocytes # 2.5 10^3/uL (0.8-4.8); Mean Corpuscular HGB Conc 32.5 g/dL (30-55); Mean Corpuscular Volume 89.2 fl (85-98); Mean Platelet Volume 10.5 fL (7.4-10.4); Monocytes # 1.2 10^3/uL (0.2-0.9); Monocytes % 8.5 %; Neutrophils # 9.85 10^3/uL (1.8-7.7); Neutrophils % 71.9 %; Nucleated Red Blood Cells % 0 %; Platelet Count 195 10^3/cmm (157-399); Red Blood Count 4.24 10^6/uL (3.85-5.65); Red Cell Distribution Width 15.2 % (12.1-15.1); White Blood Count 13.72 10^3/uL (3.29-11.43)
[2024-06-09] MEDS: ceFAZolin 2,000 mg SDV 2000 MG IVP (02:59)
[2024-06-09] MEDS: lactated ringers 1,000 ML 999 ML IV ×2 (03:08→04:10)
[2024-06-09] MEDS: ROPivacaine syringe 100 MG/50 ML SYRINGE 10 MG EPIDURAL (04:18)
--- NOTE | 2024-06-09 04:21 | P.ANESASSM_ITS ---
Pre-Anesthetic Assessment Height/Weight: Height 1.57 m Weight 86.636 kg Pulse BP Pulse Ox O2 Del Method 109 H 134/79 90 Room Air 06/09/24 04:18 06/09/24 04:18 06/09/24 04:16 06/09/24 01:24 Labor Epidural Familial anesthetic complications: None Social No alcohol and No tobacco Exam alert, oriented x 3 and clear to auscultation bilaterally Airway Submandibular: within normal limits Cervical ROM: within normal limits Mallampati: Class II Dentition: full History/ROS No significant history except as noted Pulmonary None reported CV/HEM None reported None reported Hepatic None reported GI None reported Metabolic None reported Musc/skel None reported Neuropsych None reported Anesthetic Plan ASA status: 2 Anesthesia: Regional (specify below) Other: Labor Epidural Medications/Allergies Home Medications Medication Instructions Recorded Confirmed Last Taken Type vitamin with calcium 1 tab PO DAILY 07/16/22 06/09/24 1 Day Ago History no.72-iron 27 mg-folic acid 1 mg ~06/08/24 tablet (M- Plus) Allergies Allergy/AdvReac Type Severity Reaction Status Date / Time Penicillins Allergy Unknown unknown-- Verified 06/09/24 01:00 mom told her not to take Current Medications Generic Name Dose Route Start Last Admin Trade Name Freq PRN Reason Stop Dose Admin Lactated Ringer's 1,000 mls @ 999 mls/hr 06/09/24 02:32 06/09/24 03:08 Lactated Ringers IV 999 mls/hr .Q1H1M PRN Administration See label comments PFSH Anesthesia Medical History No pertinent past medical history neghx: htn,dm,thyroid,dvt/pe Surgical History Hx of wisdom tooth extraction (~2015) Family History Grandfather Stroke Maternal Denies family history of Colon cancer Ovarian cancer Diabetes Heart disease Hypercholesteremia Breast cancer Bleeding disorder Hypertension Uterine cancer Social History Additional social history: - Tobacco use: Never Alcohol use: Socially/occasionally Drug use: Never Female Reproductive History : 3 Data Anesthesia 06/09/24 02:20 Short CBC 06/09/24 Range/Units 02:20 WBC 13.72 H (3.29-11.43) 10^3/uL Hgb 12.30 (11.27-16.99) g/dL Hct 37.8 (36-47) % MCV 89.2 (85-98) fl Plt Count 195 (157-399) 10^3/cmm Neut % (Auto) 71.9 % Neut # (Auto) 9.85 H (1.8-7.7) 10^3/uL Cardiac Studies: 2 No Data to Display Anesthesia Procedures Epidural Time Out Performed: Yes Consent: from patient, risks and benefits reviewed and patient agrees to proceed Lumbar Level: L3-L4 Epidural position: sitting Epidural procedure: sterile prep of area, 1% lidocaine to numb the area, negative for paresthesia passed, test dose given, 1.5% xylocaine 1:200k epi (5ml), placed PCEA, no systemic response, sterile dressing applied, L.U.D. no apparent complications and 0.2% Ropiavacaine @ mls/hr (10) Additional Comments: PATRICK at 6cm on first attempt - heme, -csf. epidural threaded to 13cm. 100 mcg Fentanyl given via epidural. patient reports relief.
--- NOTE | 2024-06-09 07:16 | PM.OPHPUD ---
Labor & Delivery H&P Update Date of Procedure: June 09, 2024 Date H&P Performed: 06/08/24 Changes to previous documentation: Rupture membranes with consistent contractions Admission Diagnosis: 29-year-old 3 para 2-0-0-2 at 40 weeks estimated gestational age presenting in active labor with rupture membranes Other information: The patient is a pleasant 26-year-old female who presents to the hospital complaining of contractions. After arriving she had rupture membranes. Her is unremarkable. Her labs were also unremarkable. Her blood type is a positive. Her antibody screen is negative. She passed her glucose screen she is GBS positive. The remainder of her infectious disease profile is within normal limits. Related Problem List Diagnoses (1) 40 weeks gestation of : A&P Assessment and plan (1) 40 weeks gestation of : I anticipate routine labor. She will be placed on GBS protocol. Status: Acute
--- NOTE | 2024-06-09 07:19 | PM.DELIVERY ---
Delivery Note: Date of delivery: June 09, 2024 Pre-delivery diagnoses: 29-year-old 3 para 2-0-0-2 at 40 weeks estimated gestational age Post-delivery diagnoses: Status post spontaneous vaginal delivery Procedure: Spontaneous vaginal delivery Delivering Physician: Lars Tenorio Estimated blood loss (mL): 50 Pre-Delivery Course: The patient presented to the hospital complaining of contractions. While in the hospital she had spontaneous rupture membranes. She was placed on GBS protocol. An epidural was placed. She progressed to complete without difficulty. Delivery: DELIVERY: The patient progressed to complete without difficulty. She delivered a male with a weight of 8 pounds 0 ounces with Apgars of 8, 9. The baby was delivered from the ALEXANDER position. The baby's mouth and nose were suctioned shortly after delivery. The baby was then completely delivered and placed on the mother's abdomen. The cord was then clamped and cut. There was a body cord x 1 which was easily reduced during delivery. There was no meconium. The placenta and 3 vessel cord were delivered intact shortly thereafter. The perineum and vaginal vault were carefully examined. No lacerations were noted. Both the mother and the baby were in stable condition. Post-Delivery Status: Good History History History 0 Term Miscarriages/Ectopic Living Children A&P Assessment and plan (1) 40 weeks gestation of : I anticipate routine care (2) Spontaneous vaginal delivery: Coding Level of Care Code Acute Code for Chg Fwd Diagnoses 40 weeks gestation of Z3A.40 Spontaneous vaginal delivery O80
[2024-06-09] MEDS: lanolin oint 7 gm 1 APPLIC TOPICAL (08:50)
[2024-06-09] MEDS: oxytocin 30 UNIT/500 ML BAG 600 UNIT IV (08:56)
[2024-06-09] MEDS: PRENATAL VIT NO.130/IRON/FOLIC 1 EACH TABLET PO (08:56)
--- NOTE | 2024-06-09 18:08 | ANE.PACU2 ---
Inpatient post-anesthesia follow up: Airway intact: Yes Vital signs: Temperature 97.8 F Pulse Rate 72 Respiratory Rate 15 Blood Pressure 145/78 Pulse Oximetry 98 Oxygen Delivery Me thod Room Air Oxygen Flow Rate Fraction of Inspir ed Oxygen Hydration adequate: Yes Nausea and vomiting: No Pain level: 1 Mental status: Baseline Epidural Start/End: Epidural Start Date: 06/09/24 Epidural Start Time: 03:57 Epidural End Date: 06/09/24 Epidural End Time: 08:40
[2024-06-09 19:32] LABS: Hematocrit 32.2 % (36-47); Mean Corpuscular HGB Conc 32.9 g/dL (30-55); Mean Corpuscular Hemoglobin 29.4 pg (27-33); Mean Corpuscular Volume 89.4 fl (85-98); Mean Platelet Volume 10.7 fL (7.4-10.4); Platelet Count 151 10^3/cmm (157-399); Red Cell Distribution Width 15.3 % (12.1-15.1); White Blood Count 13.19 10^3/uL (3.29-11.43)
[2024-06-10 04:00] VITALS: BP 110/70; PULSE 86; RESP 18; TEMP 36.6
[2024-06-10 10:00] VITALS: BP 117/77; PULSE 77; RESP 16; TEMP 36.6; TEMP 36.7
--- NOTE | 2024-06-10 10:16 | P.DS_ITS ---
Discharge Providers HUMAN RESOURCES CONSULTANT Date of Admission: 06/09/24 01:45 Date of Discharge: 06/10/24 Attending Provider at Admission: Lars Tenorio MD Attending Provider at Discharge: Lars Tenorio MD Primary Care Provider: Real Blanco MD Diagnoses at Discharge Discharge Diagnosis (1) 40 weeks gestation of : Status: Acute (2) Spontaneous vaginal delivery: Status: Acute Reason for Visit Reason for Visit: possible ROM Hospital Course Hospital Course The patient presented to the hospital in active labor. An epidural was placed. An amniotomy was performed. She had an unremarkable spontaneous vaginal del alessandra. Her course has been unremarkable. Her bleeding has been within normal limits. She is breast-feeding well. Her pain is been well- controlled. Information Peripartum Data: Delivery Method: Vaginal Physical Exam Narrative: The patient is alert. She appears comfortable. Her heart has a regular rate and rhythm with no murmurs appreciated. Lungs are clear to auscultation bilaterally. Her fundus is firm and below the umbilicus. Urinary Catheter Management: Phillips Latex: Cath Placed During This Visit: yes Reason for Continuing Indwelling Catheter: Required Immobilization for Trauma or Surgery or Anesthesia Urinary Catheter Date of Insertion: 06/09/24 Urinary Catheter Time of Insertion: 05:05 History History History 0 Term Miscarriages/Ectopic Living Children Discharge Data Studies Completed and Pending Laboratory Results WBC 13.19 10^3/uL (3.29-11.43) H 06/09/24 19:23 RBC 3.60 10^6/uL (3.85-5.65) L 06/09/24 19:23 Hgb 10.60 g/dL (11.27-16.99) L 06/09/24 19:23 Hct 32.2 % (36-47) L 06/09/24 19:23 MCV 89.4 fl (85-98) 06/09/24 19:23 MCH 29.4 pg (27-33) 06/09/24 19: MCHC 32.9 g/dL (30-55) 06/09/24 19:23 RDW 15.3 % (12.1-15.1) H 06/09/24 19:23 Plt Count 151 10^3/cmm (157-399) L 06/09/24 19:23 MPV 10.7 fL (7.4-10.4) H 06/09/24 19:23 Neut % (Auto) 71.9 % 06/09/24 02:20 Lymph % (Auto) 18.0 % 06/09/24 02:20 Story % (Auto) 8.5 % 06/09/24 02:20 Eos % (Auto) 1.0 % 06/09/24 02:20 Baso % (Auto) 0.1 % 06/09/24 02:20 Neut # (Auto) 9.85 10^3/uL (1.8-7.7) H 06/09/24 02:20 Lymph # (Auto) 2.5 10^3/uL (0.8-4.8) 06/09/24 02:20 Story # (Auto) 1.2 10^3/uL (0.2-0.9) H 06/09/24 02:20 Eos # (Auto) 0.1 10^3/uL (0.0-0.8) 06/09/24 02:20 Baso # (Auto) 0.0 10^3/uL (0.0-0.1) 06/09/24 02:20 Nucleated RBC % (auto) 0 % 06/09/24 02:20 Nucleated RBCs # 0.0 /100WBC 06/09/24 02:20 Insulin-like GF I Positive 06/09/24 00:40 Blood Type A Positive 06/09/24 02:20 Rho(D) Type Rh positive 06/09/24 02:20 Antibody Screen Negative 06/09/24 02:20 Vitals Last Vital Signs Temp 97.9 F 06/10/24 04:00 Pulse 86 06/10/24 04:00 Resp 18 06/10/24 04:00 BP 110/70 06/10/24 04:00 Pulse Ox 98 06/09/24 15:05 O2 Del Method Room Air 06/09/24 15:05 Results Labs OB ([facility]): Obstetrics US 11/29/23 Blood Type A Positive 06/09/24 Antibody Screen Negative 06/09/24 Hct 32.2 % (36-47) L 06/09/24 Hgb 10.60 g/dL (11.27-16.99) L 06/09/24 Rho(D) Type Rh positive 06/09/24 Plt Count 151 10^3/cmm (157-399) L 06/09/24 Ser , Semi-Qnt 64764.00 mIU/mL 11/29/23 Micro Urine Specimen 11/29/23 Discharge Plan Discharge Patient Disposition: Home Condition: Stable Prescriptions: Continued M-Hany Plus 27 mg iron- 1 mg tablet 1 tab PO DAILY Discharge Orders: Discharge Order (Routine); Ordered 06/10/24 Ordered By: Lars Tenorio Referrals: Lars Tenorio MD [Physician] - 6 Weeks (Please cancel appointment for next week as well.) Discharge Diet: Usual diet Discharge Activity: Limit activity as instructed Patient Instructions: Opioid Safety Discharge Attestations HUMAN RESOURCES CONSULTANT Time Spent in Discharge Care*: less than 30 min Coding Level of Care Code Acute Code for Chg Fwd Diagnoses 40 weeks gestation of Z3A.40 Spontaneous vaginal delivery O80
[2024-06-10 12:00] VITALS: BP 120/73; PULSE 95; RESP 16; TEMP 36.6
== END 2024-06-10 12:18 | disposition home or self-care (01) | DRG 807 ==
LOC: OPOB 01:45 → OBGYN 01:45
PROVIDERS: Admitting Provider Family Medicine; PCP Family Medicine; Visit Provider Family Medicine
DX: O99.824 Streptococcus B carrier state complicating childbirth (principal); Z37.0 Single live birth; O69.82X0 Labor and delivery complicated by other cord entanglement, without compression, not applicable or unspecified; Z3A.40 40 weeks gestation of pregnancy; Z88.0 Allergy status to penicillin
CPT/HCPCS: 36415; 51702; 59025; 59409; 83986; 84112; 85025; 85027; 86850; 86900; 96374; 98960; 99211; J0690; J2590; J2795; J3010; J7120